=== PATIENT | male | born 2000 | race Caucasian/White ===

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

== ENCOUNTER 2022-02-12 01:48 | Emergency (ER) | payer SELFPAY ==
[2022-02-12 02:27] VITALS: BP 129/74; PULSE 81; TEMP 98; BMI 24.9
== END 2022-02-12 03:06 | disposition home or self-care (01) ==
LOC: JER 01:48
DX: R07.0 Pain in throat (principal); B36.0 Pityriasis versicolor
CPT/HCPCS: 87070; 99283-25

== ENCOUNTER 2024-05-19 00:55 | Emergency (ER) | payer SELFPAY ==
[2024-05-19 01:01] VITALS: TEMP 97.9; BMI 21.7
[2024-05-19] MEDS ORDERED: ONDANSETRON 4 MG/2 ML VIAL ONE (02:19)
[2024-05-19] MEDS ORDERED: ACETAMINOPHEN INJECTION 100 ML ONE (02:19)
[2024-05-19] MEDS: SODIUM CHLORIDE 1,000 ML IV STA (02:25)
[2024-05-19] MEDS: ONDANSETRON 4 MG/2 ML VIAL IVPB ONE (02:25)
[2024-05-19] MEDS: ACETAMINOPHEN 1000 MG/100 ML BAG IVPB ONE (02:25)
[2024-05-19 02:35] LABS: BASO % 0.4 % (0-2.0); EOS % 2.5 % (0-4.5); HEMOGLOBIN 12.7 GM/dL (11.7-16.9); LYMPH % 17.7 % (8-40); MCH 24.6 pg (25.7-33.7); MCHC 32.5 g/dl (32.0-35.9); MEAN CELL VOLUME 75.6 fl (80-96); MEAN PLT VOLUME 8.6 fl (7.5-11.1); MONO % 9.3 % (3.8-10.2); NEUT % 70.1 % (42.8-82.8); PLATELET COUNT 227 10^3/uL (134-434); RBC 5.16 M/mm3 (4.00-5.60); RDW 14.8 % (11.9-15.9); WHITE BLOOD COUNT 8.2 K/mm3 (4.0-10.0)
[2024-05-19 02:45] LABS: POTASSIUM 4.2 mmol/L (3.5-5.1)
[2024-05-19 02:48] LABS: ALBUMIN 3.9 g/dl (3.4-5.0); BLOOD UREA NITROGEN 16.6 mg/dL (7-18); CALCIUM 8.7 mg/dL (8.5-10.1)
[2024-05-19 02:51] LABS: CREATININE 1.1 mg/dL (0.55-1.3)
[2024-05-19 02:53] LABS: BILIRUBIN,TOTAL 0.3 mg/dL (0.2-1); TOT PROT 6.9 g/dl (6.4-8.2)
[2024-05-19 03:26] VITALS: BP 104/58; PULSE 51; RESP 13
[2024-05-19 03:51] LABS: HIV INTERPRETATION NEGATIVE (NEGATIVE)
== END 2024-05-19 03:49 | disposition home or self-care (01) ==
LOC: JER 00:55
PROC: 3E033NZ Introduction of Analgesics, Hypnotics, Sedatives into Peripheral Vein, Percutaneous Approach (ICD-10-PCS; principal; 2024-05-19)
PROC: 3E033GC Introduction of Other Therapeutic Substance into Peripheral Vein, Percutaneous Approach (ICD-10-PCS; 2024-05-19)
PROC: 3E0337Z Introduction of Electrolytic and Water Balance Substance into Peripheral Vein, Percutaneous Approach (ICD-10-PCS; 2024-05-19)
DX: R11.2 Nausea with vomiting, unspecified (principal); R19.7 Diarrhea, unspecified; R10.9 Unspecified abdominal pain
CPT/HCPCS: 36415; 80053; 83690; 85025; 86803; 87389; 99284-25; J0131

== ENCOUNTER 2024-10-31 16:08 | Emergency (ER) | payer SELFPAY ==
[2024-10-31 16:38] VITALS: BP 135/89; PULSE 102; RESP 18; TEMP 99.2; BMI 22.4
[2024-10-31] MEDS ORDERED: MAG HYDROX/AL HYDROX/SIMETH 30 ML UNIT-DOSE CUP ONE (17:21)
[2024-10-31] MEDS: MAG HYDROX/AL HYDROX/SIMETH 30 ML UNIT-DOSE CUP PO ONE (17:22)
== END 2024-10-31 17:53 | disposition home or self-care (01) ==
LOC: JER 16:08
DX: R00.2 Palpitations (principal); R14.0 Abdominal distension (gaseous)
CPT/HCPCS: 93005; 93010; 99283-25